=== PATIENT | female | born 1975 | race Caucasian/White ===

== ENCOUNTER 2017-07-15 17:17 | Emergency (ER) | payer OTHER ==
[~2017-07-15] VITALS: Ht 157.5 cm; Wt 90.7 kg
[~2017-07-15 17:17] MED LIST: ALBUTEROL SULF8.5 GM INH; ALLER-EASE60 MG PO; IBUPROFEN800 MG PO; LISINOPRIL10 MG PO; METFORMIN HCL500 M1 PO; PERCOCET 5-3251 EACH PO; STOOL SOFTENER100 M1 PO
[2017-07-15] MEDS ORDERED: EXCEDRIN MIGRA1 EAC2 PO (17:32)
[2017-07-15] MEDS ORDERED: ZITHROMAX250 MG PO (17:41)
[2017-07-15] MEDS ORDERED: NORCO 5-325 TA1 EACH PO (17:41)
== END 2017-07-15 17:55 | disposition home or self-care (01) ==
LOC: ED 17:17
DX: J03.90 Acute tonsillitis, unspecified (principal); Z79.2 Long term (current) use of antibiotics; Z90.49 Acquired absence of other specified parts of digestive tract; Z90.721 Acquired absence of ovaries, unilateral; Z79.84 Long term (current) use of oral hypoglycemic drugs; Z79.899 Other long term (current) drug therapy
CPT/HCPCS: 99283